=== PATIENT | female | born 1960 | race Caucasian/White ===

== ENCOUNTER → 2021-01-01 08:56 | Outpatient (BNVA) | payer OTHER, SELFPAY | PROVIDERS: Referring Provider Internal Medicine; Visit Provider Physician Assistant ==

== ENCOUNTER 2021-02-05 08:44 | Day surgery (SDC) | payer OTHER, SELFPAY ==
--- NOTE | 2021-02-04 09:59 | HO.ANESPROP2 ---
HPI - Anesthesia Eval Consult details Narrative: 60yo F for Colonoscopy PMFSH Active Problems Active Problems: All Active Problems (Updated 01/30/21 @ 15:55 by Steff Tapia) History of cholecystectomy (Acute) Change in bowel function (Acute) Past Medical History Medical History Arthritis Asthma Back pain Change in bowel function CVA (cerebral vascular accident) GERD (gastroesophageal reflux disease) Headache Scoliosis Family History Family History (Updated 01/01/21 @ 09:44 by Chayo Rodrigues PA-C) Father Colon cancer, Onset Age: 80 Paternal Uncle Colon cancer Surgical History Surgical History History of abdominoplasty History of nasal surgery Hx of bilateral breast implants Hx of colonoscopy Hx of hysterectomy Social History Social History (Updated 01/01/21 @ 09:15 by Gin Wright CMA) Household Members: None Alcohol intake: current Alcohol intake frequency: a few times a month Patient Tobacco Use Status: Former Tobacco user Use of substances other than those prescribed or required for medical reasons: No Are you DNR?: No Advance Directives: No Advance Directives Information Provided: No Current occupational status: employed Current occupation: Commercial Administrator Meds Allergies Allergy/AdvReac Type Severity Reaction Status Date / Time No Known Allergies Allergy Verified 02/05/21 08:52 [No Known Allergies*] Home Medications Medication Instructions Recorded Confirmed Last Taken Type atorvastatin 20 mg tablet 20 mg PO DAILY 01/01/21 01/01/21 Unknown History colestipol 1 gram tablet 2 g PO DAILY 01/01/21 01/01/21 Unknown History pantoprazole 20 mg tablet,delayed 20 mg PO DAILY 01/01/21 01/01/21 02/05/21 06:00 History release Exam Exam Date and Time: February 04, [id number] Assessment and Plan Assessment Anesthesia Assessment: Chart Reviewed
[2021-02-05 08:56] VITALS: BMI 28.3
[2021-02-05 09:06] VITALS: BP 123/71; PULSE 63; RESP 18; TEMP 36.3; O2SAT 95
[2021-02-05] MEDS: Lactated Ringers 1,000 ML 100 ML IVCONT (09:16)
--- NOTE | 2021-02-05 10:08 | P.OP_ITS ---
Operative Note Operative Note Date of Service: 02/05/21 Narrative: Pre-op diagnosis: Colon cancer screening, change in bowel habits Post-op diagnosis: other (Diverticulosis, hemorrhoids) Procedure: COLONOSCOPY TILL CECUM WITH BIOPSIES Consent: Indications for the procedure and potential complications of bleeding, perforation, reaction to medications and missed diagnosis were discussed with the patient and informed consent was obtained. Instrument: Olympus PCF H 190 L variable stiffness pediatric colonoscope Monitoring: Vital signs and clinical assessment, intermittent blood pressure monitoring, continuous EKG monitoring, Pulse oximetry and Carbon Dioxide monitoring were done throughout the procedure. Colon withdrawl time was 17 minutes. Procedure: The patient was placed in the left lateral decubitis position and pre-procedure medications were administered. After a digital rectal examination of the ano-rectum, the video colonoscope was inserted into the rectum and advanced through the colon to the cecum. The colonoscope was slowly withdrawn in a retrograde panoramic fashion and the colon mucosa was carefully examined including a retroflexed view of the rectum. Findings and interventions are described below. Procedure Difficulty: Without difficulty Findings: Terminal Ileum: Distal 5 cm was examined and appeared normal Cecum: Normal Ascending Colon: Normal Transverse Colon: Normal Descending Colon: Normal Sigmoid Colon: Moderate diverticulosis Rectum: Normal Ano-rectum: Small internal hemorrhoids and multiple hypertrophied anal papillae Colon preparation: Excellent Impression and Post Procedure Diagnosis: Colonoscopy Findings: No polyps were detected. Random biopsies were obtained from the colon to check for microscopic colitis. Moderate diverticulosis seen in the sigmoid colon Small hemorrhoids on retroflexed exam. Plan: Await pathology results Patient has an appointment on 02/19/21 in the [facility] with DENNY Henry . Repeat Colonoscopy interval based on path results - in 3-5 years if polyps are adenomatous and 10 years if polyps are hyperplastic. Above findings were reviewed with the patient and diverticulosis handout was given in the discharge area Surgeon: Becky Bowman MD Anesthesia: MAC (Dr Mak & Dr Childs) Was an [employer] used for this Procedure?: Yes [employer] Principal: Tyrone Arias Estimated blood loss (mL): 0 Pathology: other (A. RANDOM COLON BX'S R/O MICROSCOPIC COLITIS) Condition: stable Disposition: PACU
--- NOTE | 2021-02-05 10:09 | MHC.SHP ---
Pre-Procedural Eval Section A The patient is an INPATIENT: No The History & Physical has been completed within 30 days and I have reviewed it.: No Section B Chief Complaint: Change in Bowel Function Relevant Family History (Specify if Yes): Yes Relevant Social History: None Present Medications: see Short Stay Collaborative assessment Medical History: Significant History (Change in bowel function CVA (cerebral vascular accident)) History of Previous Operations: Relevant previous surgery/procedure and date(s) (Status post cholecystectomy, status post hysterectomy) Allergies: Allergies Allergy/AdvReac Type Severity Reaction Status Date / Time No Known Allergies Allergy Verified 02/05/21 08:52 [No Known Allergies*] Review of Systems Sugical H&P ROS: Negative: Constitution, Cardiovascular and Respiratory and Yes, Specify: Gastrointestinal (Change in bowel habits, abdominal bloating) Exam Surgical H&P Exam: Normal: Heart, Normal: Lungs, Normal: Extremities and Normal: Abdomen Plan Diagnosis/Plan: Unchanged I have reviewed the history and physical and performed a pertinent physical examination on my patient. No changes have occurred unless specified.
[2021-02-05 11:49] VITALS: BP 127/70; PULSE 80; RESP 16; TEMP 36.1; O2SAT 97
[2021-02-05 12:05] VITALS: BP 137/77; PULSE 74; RESP 18; TEMP 36.1; O2SAT 99
== END 2021-02-05 12:40 | disposition home or self-care (01) ==
PROVIDERS: PCP Internal Medicine; Visit Provider Internal Medicine Gastroenterology
PROC: 0DJD8ZZ Inspection of Lower Intestinal Tract, Via Natural or Artificial Opening Endoscopic (ICD-10-PCS; CPT 45378; principal; 2021-02-05 10:10)
DX: Z12.11 Encounter for screening for malignant neoplasm of colon (principal); K57.30 Diverticulosis of large intestine without perforation or abscess without bleeding; K64.8 Other hemorrhoids; K62.89 Other specified diseases of anus and rectum; Z86.73 Personal history of transient ischemic attack (TIA), and cerebral infarction without residual deficits; Z90.49 Acquired absence of other specified parts of digestive tract; Z79.899 Other long term (current) drug therapy
CPT/HCPCS: 45380; 88305

== ENCOUNTER → 2021-03-11 10:11 | Outpatient (BNVA) | payer OTHER, SELFPAY | PROVIDERS: Visit Provider Physician Assistant ==

== ENCOUNTER 2022-10-06 09:16 | Outpatient (REF) | payer OTHER, SELFPAY ==
[2022-10-06 10:41] LABS: MANUAL DIFF FLAG NO
[2022-10-06 11:02] LABS: Basophils Absolute Auto 0.1 X10*3/uL (0.0-0.2); Basophils Percent Auto 2.3 % (0-2); Eosinophils Absolute Auto 0.5 X10*3/uL (0.0-0.4); Eosinophils Percent Auto 8.6 % (0-4); Hematocrit 40.7 % (37.0-47.0); Hemoglobin 13.6 g/dl (12.0-16.0); Imm Gran Abs Auto 0.02 X10*3/uL (0.00-0.03); Imm Gran Pct Auto 0.4 % (0.0-0.4); Lymphocytes Absolute Auto 1.5 X10*3/uL (1.2-4.9); Lymphocytes Percent Auto 27.5 % (20-40); Mean Corpuscular HGB Conc 33.4 g/dl (31.0-35.0); Mean Corpuscular Hemoglobin 30.4 pg (27.0-33.0); Mean Corpuscular Volume 91.1 fL (80.0-98.0); Mean Platelet Volume 11.9 fL (9.4-12.3); Monocytes Absolute Auto 0.4 X10*3/uL (0.1-1.2); Monocytes Percent Auto 6.8 % (2-11); Neutrophils Absolute Auto 3.1 x10*3/uL (2.0-8.3); Neutrophils Percent Auto 54.4 % (45-73); Platelet Count 211 X10*3/uL (160-400); Red Blood Count 4.47 X10*6/uL (4.20-5.50); Red Cell Distribution Width 13.3 % (11.0-16.0); White Blood Count 5.6 X10*3/uL (4.8-10.8)
== END 2022-10-06 09:17 | disposition home or self-care (01) ==
LOC: HO.LAB 09:16
PROVIDERS: PCP Internal Medicine; Visit Provider Physician Assistant
DX: K52.9 Noninfective gastroenteritis and colitis, unspecified (principal); R19.8 Other specified symptoms and signs involving the digestive system and abdomen; K21.9 Gastro-esophageal reflux disease without esophagitis; I10 Essential (primary) hypertension; Z79.899 Other long term (current) drug therapy
CPT/HCPCS: 36415; 85025; 86140

== ENCOUNTER 2022-10-07 14:41 | Outpatient (REF) | payer OTHER, SELFPAY ==
[2022-10-07 16:27] LABS: CDiff Gene PCR NEGATIVE (Negative)
[2022-10-07 16:40] LABS: Adenovirus F 40/41 Not Detected (Not Detect.); Astrovirus Not Detected (Not Detect.); Campylobacter Not Detected (Not Detect.); Cryptosporidium Not Detected (Not Detect.); Cyclospora cayetanensis Not Detected (Not Detect.); E. coli EAEC Not Detected (Not Detect.); E. coli EPEC Not Detected (Not Detect.); E. coli ETEC Not Detected (Not Detect.); E. coli STEC Not Detected (Not Detect.); Entamoeba histolytica Not Detected (Not Detect.); Giardia lamblia Not Detected (Not Detect.); Norovirus GI/GII Not Detected (Not Detect.); Plesiomonas shigelloides Not Detected (Not Detect.); Rotavirus A Not Detected (Not Detect.); Salmonella Not Detected (Not Detect.); Sapovirus Not Detected (Not Detect.); Shigella sp./EIEC Not Detected (Not Detect.); Vibrio Not Detected (Not Detect.); Vibrio Cholerae Not Detected (Not Detect.); Yersinia enterocolitica Not Detected (Not Detect.)
[2022-10-13 23:48] LABS: Calprotectin, Fecal 42 mcg/g
== END 2022-10-07 14:42 | disposition home or self-care (01) ==
LOC: HO.LNP 14:41
PROVIDERS: Visit Provider Physician Assistant
DX: R19.8 Other specified symptoms and signs involving the digestive system and abdomen (principal); K52.9 Noninfective gastroenteritis and colitis, unspecified
CPT/HCPCS: 83993; 87493; 87507

== ENCOUNTER → 2022-10-27 11:19 | Outpatient (BNVA) | payer OTHER, SELFPAY | PROVIDERS: PCP Internal Medicine; Referring Provider Internal Medicine; Visit Provider Physician Assistant | DX: Z13.89 Encounter for screening for other disorder (principal) ==